=== PATIENT | male | born 1940 | race Caucasian/White ===

== ENCOUNTER 2016-11-20 03:36 | Inpatient (IN) ==
[2016-11-20] MEDS ORDERED: DOPAMINE 400 MG/D5W 400 MG/500 ML IV.SOLN IV SCH (03:40)
[2016-11-20] MEDS ORDERED: DOPAMINE 800 MG/D5W 800 MG/500 ML IV.SOLN ONE (03:45)
[2016-11-20 03:55] LABS: MANUAL DIFF NEEDED? NO
[2016-11-20] MEDS: DOPAMINE 800 MG/D5W 800 MG/500 ML IV.SOLN IV SCH ×2 (04:00→06:10)
[2016-11-20 04:07] LABS: BASO% 0.4 % (0.0-0.8); EOS# 0.12 X1000 (0.0-0.7); EOS% 1.5 % (0.0-10.0); HEMATOCRIT 29.3 % (42.0-52.0); IMM GRAN# 0.18 X1000 (0.0-0.04); IMM GRAN% 2.2 % (0.0-0.5); LYMPH# 0.88 X1000 (1.2-3.4); LYMPH% 10.9 % (20.5-51.1); MCH 29.8 PG (27-31); MCHC 30.7 g/dL (33-37); MONO# 1.42 X1000 (0.11-0.59); MONO% 17.5 % (1.7-9.3); MPV 11.6 FL (7.4-10.4); NEUT% 67.5 % (42.2-75.2); PLT 163 X1000 (130-400); RBC 3.02 XMIL (4.7-6.1)
--- NOTE | 2016-11-20 04:15 | PROVIDER DOCUMENTATION ---
HPI-Cardiopulmonary Arrest - General Chief Complaint: Full Arrest Stated Complaint: full arrest Time Seen by Provider: 11/20/16 04:06 Source: EMS Unable to obtain history due to:: urgency Allergies/Adverse Reactions: Allergies Allergy/AdvReac Type Severity Reaction Status Date / Time Unable to Assess Allergy Unverified 11/20/16 05:05 - History of Present Illness-C/P Arrest Initial Comments: Patient with a history of BABS, COPD, Morbid obesity, HTN, DM, CHF. Collapsed on the floor at home face first, and became unresponsive. EMS on arrival initiated CPR and intubated on the scene. According to EMS, patient went asystolic and had episodes of PEA. Reason for Code Blue?: full arrest Witnessed arrest?: Yes Noted by:: family CPR initiated before doctor arrival?: Yes Down-time before ACLS?: unknown Initial Findings: unresponsive, asystole, PEA Torres, no respirations, no pulse Treatment initiated prior to doctor arrival?: Initiated oxygen, Initiated intubated, Initiated CPR/thumper, Initiated IV fluids, Initiated epinephrine #mg Similar Symptoms Previously?: No Recently seen or treated by another doctor?: No - Pre-hospital Treatment EMS Initial Findings:: unresponsive, no respirations, dyspneic Pre-hospital Treatment: Initiated oxygen, Initiated BVM, Initiated intubated, Initiated CPR, Initiated IV fluids Review of Systems - Adult - REVIEW OF SYSTEMS - ADULT ROS:: unobtainable per condition Constitutional: reports: no symptoms reported Eyes: reports: no symptoms reported Ears, Nose, Mouth & Throat: reports: no symptoms reported Cardiovascular: reports: see HPI Respiratory: reports: dyspnea on exertion Gastrointestinal: reports: no symptoms reported Genitourinary: reports: no symptoms reported Musculoskeletal: reports: no symptoms reported Integumentary: reports: no symptoms reported Neurological: reports: no symptoms reported Psychiatric: reports: no symptoms reported Endocrine: reports: no symptoms reported Hematologic/Lymphatic: reports: no symptoms reported Allergic/Immunologic: reports: no symptoms reported Past History - Adult - PAST MEDICAL HISTORY-ADULT Review of Records: reports: Old Records Reviewed, Nursing Assessment Review, Medications Reviewed, Social history reviewed & non-contributory. Cardiovascular: reports: CHF, HTN Physical Exam-General - PHYSICAL EXAM-ADULT Initial Vital Signs Reviewed: Yes - CONSTITUTIONAL General Appearance: severe distress, obese, obtunded - EYES Eyes: pale conjunctivae - HEAD, EARS, NOSE, MOUTH & THROAT HENMT: TMs normal (blood coming from left nare) - RESPIRATORY Respiratory: decreased breath sounds, decreased rate - CARDIOVASCULAR Cardiovascular: irregularly irregular - GASTROINTESTINAL (ABDOMEN) Abdominal Exam: normal bowel sounds - LYMPHATIC Lymphatic: no adenopathy - MUSCULOSKELETAL Back Exam: normal inspection Extremity: normal range of motion, erythema, pedal edema (chronic venous stasis dermatitis), swelling - SKIN Integumentary: cyanosis, rash, swelling Progress - PLAN OF CARE/RESULTS Progress/Plan/Lab Results: Vital Signs - 8 hr 11/20/16 03:40 11/20/16 04:01 Temperature 96.9 F L Pulse Rate 57 L 85 Respiratory Rate 14 16 Blood Pressure 54/37 84/35 O2 Sat by Pulse Oximetry 99 100 Laboratory Results - last 24 hr 11/20/16 11/20/16 11/20/16 03:40 03:40 03:40 WBC 8.11 RBC 3.02 L Hgb 9.0 L Hct 29.3 L MCV 97.0 MCH 29.8 MCHC 30.7 L RDW Std Deviation 17.8 H Plt Count 163 MPV 11.6 H Immature Gran % (Auto) 2.2 H Neut % (Auto) 67.5 Lymph % (Auto) 10.9 L Terry % (Auto) 17.5 H Eos % (Auto) 1.5 Baso % (Auto) 0.4 Immature Gran # (Auto) 0.18 H Neut # (Auto) 5.48 Lymph # (Auto) 0.88 L Terry # (Auto) 1.42 H Eos # (Auto) 0.12 Baso # (Auto) 0.03 PT INR PTT (Actin FS) Sodium 140 Potassium 5.7 H Chloride 96 L Carbon Dioxide 25 Anion Gap 19 BUN 39 H Creatinine 1.7 H Estimated GFR/1.73 m2 39 BUN/Creatinine Ratio 23 Glucose 212 H Calculated Osmolality 295 Calcium 8.9 Magnesium 2.3 Total Bilirubin 0.88 AST 23 ALT 16 Alkaline Phosphatase 108 Creatine Kinase 53 Mto-V-Bcieavnhjcs Pept 2336 H Total Protein 6.0 L Albumin 3.3 L Globulin 2.7 Albumin/Globulin Ratio 1.2 11/20/16 03:40 WBC RBC Hgb Hct MCV MCH MCHC RDW Std Deviation Plt Count MPV Immature Gran % (Auto) Neut % (Auto) Lymph % (Auto) Terry % (Auto) Eos % (Auto) Baso % (Auto) Immature Gran # (Auto) Neut # (Auto) Lymph # (Auto) Terry # (Auto) Eos # (Auto) Baso # (Auto) PT 22.4 H INR 2.04 PTT (Actin FS) 59.8 H Sodium Potassium Chloride Carbon Dioxide Anion Gap BUN Creatinine Estimated GFR/1.73 m2 BUN/Creatinine Ratio Glucose Calculated Osmolality Calcium Magnesium Total Bilirubin AST ALT Alkaline Phosphatase Creatine Kinase Jen-D-Ccwkxfblhdq Pept Total Protein Albumin Globulin Albumin/Globulin Ratio Orders Category Date Time Status Cardiac Monitoring DIRECTED Care 11/20/16 03:43 Active DNR [Resuscitation Status] Routine Care 11/20/16 04:48 Ordered Oxygen Therapy- ED Nursing DIRECTED Care 11/20/16 03:43 Active Saline Loc NOW Care 11/20/16 03:43 Active CHEST-PORTABLE [RAD] Stat Exams 11/20/16 03:43 Taken CHEST/ABD TUBE PLACEMENT [RAD] Routine Exams 11/20/16 Taken HEAD W/O CONTRAST [CT] Stat Exams 11/20/16 04:22 Taken ABG [RESP] Routine Lab 11/20/16 05:11 Ordered CBC WITH ELECTRONIC DIFF [HEME] Stat Lab 11/20/16 03:40 Completed CK PROFILE [SP CHEM] Stat Lab 11/20/16 03:40 Completed COMPREHENSIVE METABOLIC PANEL [CHEM] Stat Lab 11/20/16 03:40 Completed D-DIMER [CHEM] Stat Lab 11/20/16 03:47 Ordered MAGNESIUM [CHEM] Stat Lab 11/20/16 03:40 Completed PRO B-NATRIURETIC PEPTIDE Stat Lab 11/20/16 03:40 Completed PROTIME WITH INR [COAG] Stat Lab 11/20/16 03:40 Completed PTT [COAG] Stat Lab 11/20/16 03:40 Completed TROPONIN T Stat Lab 11/20/16 03:40 Received 0.9% Sodium Chloride Inj [Ns] Med 11/20/16 05:00 Discontinued 1,000 ml IV .STK-MED ONE Dopamine 400 mg/D5w Med 11/20/16 03:40 Active 400 mg in 500 ml IV Per Protocol Dopamine 800 mg/D5w Med 11/20/16 03:45 Discontinued 800 mg in 500 ml .ROUTE As Directed Epinephrine Syringe Med 11/20/16 05:00 Discontinued 1 mg IV .STK-MED ONE Sodium Bicarbonate 8.4% Med 11/20/16 05:00 Discontinued 50 meq IV .STK-MED ONE EKG [EKG] Stat Ther 11/20/16 03:40 Ordered EKG [EKG] Stat Ther 11/20/16 03:43 Ordered Result Diagrams: 11/20/16 03:40 11/20/16 03:40 - REASSESSMENT Reassessment #1 Status: worsening (Family does not wish any heroic measures, as per patient's request) - EKG 1 Time of EKG reading by physician:: 04:35 EKG Read and Signed by:: Kishor Gandhi EKG Interpretation (*Must complete 3 of following elements*): Abnormal [place]: normal QRS: normal Comments: afib rate 67, non specific sttwave changes - XRAY 1 XRAY Study: Chest (cardiomegaly and pulmonary edema) Departure - Departure Date of Disposition Decision: 11/20/16 Time of Disposition Decision: 05:20 DIAGNOSIS: Cardiopulmonary arrest with successful resuscitation Disposition: ADMITTED INPATIENT 09 Certified Medical Emergency: Emergent Condition: Serious Referrals and Follow-Ups: None,PCP [Clinical Support] - - Critical Care Note This patient required my direct & personal management of CC.: No Attestation - Physician/ E[place] Attestation The physician spent face to face time with patient:: Yes Advanced Practice Provider documentation review:: The physician spent face to face time with this patient and agrees with all MLP documentation, treatment, and medical decision making by the MLP. See provider notes for further information.
[2016-11-20 04:23] LABS: INR 2.04
[2016-11-20 04:36] LABS: ALBUMIN 3.3 g/dL (3.5-5.0); CALCIUM 8.9 mg/dL (8.8-10.2); MAGNESIUM 2.3 mg/dL (1.5-2.7); POTASSIUM 5.7 mmol/L (3.5-5.1); TOTAL BILIRUBIN 0.88 mg/dL (0.20-1.00)
[2016-11-20 04:51] LABS: PROTIME 22.4 Seconds (9.2-11.7); PTT 59.8 Seconds (22.0-36.0)
[2016-11-20] MEDS ORDERED: SODIUM BICARBONATE 8.4% IV ONE (05:00)
[2016-11-20] MEDS ORDERED: NS IV ONE (05:00)
[2016-11-20] MEDS ORDERED: EPINEPHRINE SYRINGE IV ONE (05:00)
[2016-11-20 05:19] LABS: ALLEN TEST YES; BE 4.8 mmoll (-3.0-3.0); BLOOD TYPE ARTERIAL; DRAW SITE R RADIAL; METHB 0.8 % (0.0-1.5); O2(CT) 12.1 mL/dL (15.0-23.0); PO2(98.6) 70 mmHg (60-100); SAMPLE BLOOD; SAO2 97.2 % (95.0-100.0); SRATE 16 BPM; THB 9.2 g/dL (11.5-17.4); TVOL 650 mL; pH(98.6) 7.26 (7.35-7.45)
[2016-11-20 05:20] LABS: MODALITY VENTILATOR
[2016-11-20 05:21] LABS: PCO2(98.6) 74 mmHg (35-45)
--- NOTE | 2016-11-20 05:25 | EKG Report ---
Test Performed on : 11/20/2016 03:37:33 AM Test Reason : post arrest Blood Pressure : / mmHG Vent. Rate : 067 BPM Atrial Rate : 019 BPM P-R Int : 000 ms QRS Dur : 096 ms QT Int : 422 ms P-R-T Axes : 000 -33 039 degrees QTc Int : 445 ms Atrial fibrillation. Left axis deviation Nonspecific ST and T wave abnormality Abnormal ECG No previous ECGs available Unconfirmed Result
[2016-11-20 05:39] LABS: URINE CULTURE NEEDED? NO; URINE SOURCE CATH
[2016-11-20 05:45] LABS: URINE MICRO REVIEW NEEDED? YES
[2016-11-20 05:50] LABS: UR EPITHELIAL CELLS >10 /HPF (<10); URINE BACTERIA NEGATIVE /HPF; URINE RBC <10 /HPF (<10); URINE WBC <10 /HPF (<10)
[2016-11-20 05:54] LABS: URINE SMALL ROUND CELLS NONE SEEN
[2016-11-20 06:03] LABS: UR AMPHETAMINES QUAL NONE DETECTED (NONE DETECT); UR BARBITUATES QUAL NONE DETECTED (NONE DETECT); UR BENZODIAZEPIN QUAL NONE DETECTED (NONE DETECT); UR CANNABINOIDS QUAL NONE DETECTED (NONE DETECT); UR COCAINE QUAL NONE DETECTED (NONE DETECT); UR METHADONE QUAL NONE DETECTED (NONE DETECT); UR OPIATES QUAL NONE DETECTED (NONE DETECT); UR OXYCODONE QUAL NONE DETECTED (NONE DETECT); UR PCP QUAL NONE DETECTED (NONE DETECT)
[2016-11-20 06:12] LABS: BILIRUBIN URINE NEGATIVE (NEGATIVE); BLOOD URINE SMALL (NEGATIVE); COLOR YELLOW; GLUCOSE URINE NEGATIVE (NEGATIVE); LEUKOCYTES URINE NEGATIVE (NEGATIVE); NITRITE URINE NEGATIVE (NEGATIVE); PROTEIN URINE 300 mg/dL (NEGATIVE); SP GRAVITY URINE 1.025; TURBIDITY URINE CLEAR (CLEAR); UROBILINOGEN URINE 2 mg/dL (NORMAL)
--- NOTE | 2016-11-20 07:11 | Diag Imaging Result Doc PS360 ---
EXAM: CHEST-PORTABLE HISTORY: CP TECHNIQUE: AP portable at 0355 COMMENT: There is an endotracheal tube with its tip slightly below the thoracic inlet and an NG tube which passes below the diaphragm. There is alveolar opacity in the perihilar regions. The right costophrenic angle region is not included on the image. There are no previous studies. IMPRESSION: Pulmonary edema plus minus pneumonia. Electronically signed by Donovan Owens 11/20/2016 7:08 AM
[2016-11-20] MEDS ORDERED: TYLENOL PR PRN (07:20)
[2016-11-20] MEDS ORDERED: ATIVAN IV PRN (07:20)
[2016-11-20] MEDS ORDERED: ZOFRAN IV PRN (07:20)
[2016-11-20] MEDS ORDERED: PROTONIX IV SCH (07:20)
[2016-11-20] MEDS ORDERED: MORPHINE IV PRN (07:20)
[2016-11-20] MEDS ORDERED: SODIUM CHLORIDE 0.9% INJ SCH (07:20)
[2016-11-20] MEDS ORDERED: LOVENOX SUBQ SCH (08:00)
--- NOTE | 2016-11-20 08:30 | Diag Imaging Result Doc PS360 ---
EXAM: CHEST/ABD TUBE PLACEMENT HISTORY: NG TUBE TECHNIQUE: AP portable at 0410 supine COMMENT: The NG tube tip appears to be in the fundus of the stomach. There is apparently a fairly large amount of retained gastric contents. Gas is demonstrated in the colon. IMPRESSION: NG tube in the stomach. Electronically signed by Donovan Owens 11/20/2016 8:27 AM
--- NOTE | 2016-11-20 08:33 | Diag Imaging Result Doc PS360 ---
EXAM: HEAD W/O CONTRAST INDICATION: cardiac arrest COMPARISON: None. FINDINGS: There are couple small brayan holes in the skull on the right. Underlying the most posterior brayan hole, there is a small tract of encephalomalacia in the right parietal lobe. There is no evidence of acute infarct given the limited sensitivity of CT versus MRI. There is increased extra-axial space anterior to the frontal lobes bilaterally. This very likely represents frontal lobe atrophy. I suppose chronic subdural hematomas or hygromas are possible. However, feel that this is much less likely. There is no discrete intracranial mass, mass effect, or acute intracranial hemorrhage. The patient has been intubated. There is fluid in the nasal cavity and ethmoid sinuses, likely due to the intubation. There is evidence of a small scalp hematoma at the forehead at and just to the left of midline. Correlate clinically with a history of recent trauma. There is no evidence of acute skull fracture. IMPRESSION: 1.Increased extra-axial space anterior to the frontal lobes as described. Please see above discussion. 2.Findings suggestive of a small scalp hematoma at the forehead. Please correlate with history of recent trauma. 3.Other chronic appearing findings detailed above but no definite acute pathology. If there is clinical concern for acute ischemia, MRI would be helpful if not contraindicated. Electronically signed by Noah Meza 11/20/2016 8:30 AM
--- NOTE | 2016-11-20 09:02 | HISTORY AND PHYSICAL ---
PRIMARY CARE PROVIDER: Dr. Bety Del Angel. DATE AND TIME OF HISTORY AND PHYSICAL: November 20, 2016 at 0530. CHIEF COMPLAINT: Cardiac arrest. HISTORY OF PRESENT ILLNESS: Mr. Astudillo is a 76-year-old male who has , according to his daughter and son, a past medical history of congestive heart failure, hypertension, diabetes mellitus, sleep apnea, and peripheral vascular disease. Early this morning the patient's caregiver reported that he heard the patient call out, yelling for help, though by the time his caregiver got to his room the patient was unresponsive, face down on the floor. CPR was started on scene by his caregiver. Upon EMS arrival they reported that the patient was asystole. CPR was resumed with STANLEY device by EMS. The patient was also intubated by EMS prior to arrival with a 7.5 ET tube that was secured at 22 at the lip. Also prior to arrival the patient did have a right lower extremity IO placed as well. He received a total of 3 separate doses of 1 mg of epinephrine IV push as well as a total of 2 doses of sodium bicarbonate. Initial vitals upon arrival to the ER were heart rate 57, there was a palpable pulse present. Blood pressure was 54/37. He was placed on a dopamine drip. At this time his blood pressure and heart rate have both improved with last vital signs of heart rate 109, respirations 18 per mechanical ventilator, blood pressure is 138/76, oxygen saturation is 97%. EKG did show atrial fibrillation at a rate of 67 with a QTc of 445. His daughter and son both report that over the past few days that he has complained of shortness of breath, though no known other complaints. Unfortunately we do not have any recent past medical history in our system for this patient. His is out of town at this time in [place] and is on her way home. After discussing with the patient's daughter and son at bedside, as well as they have spoken to their mother, the patient's , it is their wishes at this time to continue with his ventilatory support as well as blood pressure and heart rate support with dopamine, though they do not want any further measures taken. They have placed him as a level 1 DNR at this time. At this time they want him to have supportive care. His is on her way and once she gets here the patient's son and daughter did mention that she might make the decision to withdraw care from the ventilator and supportive cardiac medications. At this time the patient's cause of cardiac arrest is unknown. We will continue his ventilatory support as well as dopamine per patient's family wishes. He will be placed in the ICU for further treatment and evaluation. REVIEW OF SYSTEMS: At this time we are unable to obtain a complete review of systems due to the patient being unresponsive. PAST MEDICAL HISTORY: We were unable to obtain a complete past medical history due to the patient's current condition, though his daughter and son at bedside did provide the following known past medical history. 1. Hypertension. 2. Diabetes mellitus. 3. Congestive heart failure. 4. Atrial fibrillation. 5. COPD. 6. Obstructive sleep apnea. 7. Morbid obesity. 8. Previous history of intracranial bleed after a fall. PAST SURGICAL HISTORY: 1. Craniotomy for treatment of a intracranial bleed after a fall. The family did report that since this injury the patient has been taken off of any anticoagulants. 2. Bilateral total knee replacements. 3. Right hip replacement. SOCIAL HISTORY: The patient's family denies any known history of alcohol or illicit drug use. His son did report that he has a previous history of smoking for approximately 20 years ago though quit 40 years ago. PAST FAMILY MEDICAL HISTORY: Patient's family reports that the patient's mother lived to be 102 and of natural causes. His father had a history of having a hole in his heart which could have possibly be an atrial septal defect, though this exact diagnosis is unknown. He does have 1 sister who is still living and has no known medical problems. ALLERGIES: At this time the patient's medication allergies are unknown. HOME MEDICATIONS: At this time we are unable to obtain the patient's home medications due to the patient's condition. Once his arrives we will try to obtain a more accurate medication list or contact the patient's pharmacy to obtain this as well. DIAGNOSTIC DATA/LABORATORY RESULTS: White blood cell count 8.1, hemoglobin 9, hematocrit 29.3, platelet count 163,000. PT 22.4, INR 2.04, PTT 59.8. Sodium 140, potassium 5.7 , chloride 96, bicarb 25, BUN 39, creatinine 1.7, with a GFR of 39, glucose 212, calcium 8.9, magnesium 2.3. Liver function tests are within normal limits. CK 53. Troponin less than 0.01. ProBNP 2,336. Urinalysis was obtained via cath and was positive for protein, small blood, greater than 10 epithelial cells. It was negative for glucose, ketones, nitrites, leukocytes, or bacteria. Urine drug screen was negative. Arterial blood gases were obtained on the ventilator , pH was 7.26, pCO2 was 74, PO2 78, CO3 was 28.6, with a base excess of 4.8, O2 saturation was 97.2. EKG showed atrial fibrillation with a nonspecific ST and T-wave abnormality at a rate of 67 with a QTc of 445. Chest x-ray did show findings of cardiomegaly and pulmonary edema as well, though we are awaiting the official radiology over-read. Head CT without contrast showed there was loss of the normal hou white matter differentiation. This may simply be secondary to technique, although early brain edema is not entirely excluded. Continued follow up was suggested. Increased extra-axial space anterior to the bilateral frontal lobes. This likely relates to atrophy, although chronic subdural hematomas or hygromas are not excluded. Recommended comparison with prior imaging if possible. Right frontal and right parietal brayan holes, small. Encephalomalacia within the right parietal lobe. This was per radiology. Pending diagnostic studies at this time are a D-dimer. PHYSICAL EXAMINATION: VITAL SIGNS: Temperature 96.9 degrees, heart rate is 109, respirations 18, blood pressure is 138/76. Oxygen saturation is 97% per mechanical ventilator. GENERAL: Mr. Astudillo is a 76-year-old male who was resting in the ER stretcher. The patient was unresponsive upon our examination. Due to this, his neurological and physical examination was somewhat limited. HEENT: The patient does have an approximately 1 inch, very superficial laceration/abrasion noted to his forehead. There was some dried blood noted. He also has a superficial laceration noted to his nose as well. This has previously been Dermabonded by the ER physician, Dr. Gandhi, though there is still some dry blood noted also. Pupils are 4 mm bilaterally, are equal, round, and nonreactive. The patient did have some scleral edema noted to his right eye as well. Oral mucosa is slightly dry. NECK: Supple. Trachea midline. CARDIOVASCULAR: Patient has normal S1, S2. No murmurs, gallops, or rubs appreciated, with a tachycardic rate that is irregular. PULMONARY: Patient has symmetrical chest expansion bilaterally. Lung sounds were clear to auscultation bilateral full mckeon. At this time he is maintaining oxygen saturation of 97% on mechanical ventilator. ABDOMEN: Soft. It is hard to determine whether or not the patient's abdomen is distended due to he does have a protuberant abdomen noted. Bowel sounds were present in all 4 quadrants and were normoactive. No facial grimacing or guarding noted upon palpation of his abdomen. GENITOURINARY: Patient does have a Calero catheter present at this time. EXTREMITIES: The patient does have edema noted to bilateral lower extremities from approximately the knee down. He also has some discoloration noted to his bilateral lower extremities consistent with some peripheral vascular disease. Pulses were difficult to palpate due to his swelling, though were easily obtainable with venous Doppler on the bilateral dorsalis pedis. Capillary refill is less than 3. INTEGUMENTARY: Patient's skin is warm, dry, and intact except for previously mentioned injuries to the patient's forehead and nose. NEUROLOGICAL: Patient currently has a GCS of 3. Pupils were 4 mm bilaterally, equal, round, and nonreactive. He had no response to painful stimulation either. Due to this his neurological exam is very limited. ASSESSMENT AND PLAN: 1. Status post cardiac arrest. At this time, as previously mentioned, the patient has been successfully resuscitated. He was initially hypotensive and bradycardic. For treatment of this he was placed on a dopamine drip and his blood pressure as well as heart rate have improved. Heart rate is 109, in atrial fibrillation, and blood pressure is 137/63. His cardiacs at this time are negative. We are waiting a D-dimer to be drawn. At this time the cause of his cardiac arrest is unknown. We will continue with his current treatment. Family has expressed that they do want him to be a level 1 DNR from here on out. They did not want us to withdrawal any care at this time until the patient's arrives, though they do not want us to provide any further care if his condition was to worsen. At this time we will leave the patient on the ventilator as well as his dopamine infusion until his can arrive and family can make further decisions about his care. He will be placed in the ICU for close monitoring. The patient is critical and his condition is very guarded. 2. Hypotension. As previously mentioned, we will continue his dopamine infusion and continue to follow. 3. Bradycardia. Will continue with his dopamine infusion as previously mentioned and continue to follow. 4. Acute respiratory failure. Respiratory support is being provided per mechanical ventilator. Initial ABGs did show a pH of 7.26 as well as a pCO2 of 74. We have adjusted his ventilatory rate and will continue to follow. We have also consulted pulmonology for ventilator management as well. 5. Acute kidney injury. This is likely secondary to the patient's cardiac arrest and hypotension. The patient did receive a 1 L normal saline bolus prior to arrival and in the ER. The patient does have a history of congestive heart failure and does have some signs of pulmonary edema on his chest x-ray. At this time we will not continue with any further fluids, though we will continue to monitor his renal function closely. 6. Diabetes mellitus. We will also monitor his fingerstick blood sugars closely as well and will implement a low-dose lispro sliding scale insulin if needed. 7. The patient was placed in ICU with telemetry. He will have vital signs per ICU protocol. Will do strict intake and output. For DVT prophylaxis we will provide Lovenox 30 mg subcutaneously q.24 hours. He will be NPO. We will do GI prophylaxis with Protonix 40 mg IV q.24 hours. We will also give Ativan and morphine p.r.n. as needed for agitation or sedation. We will wait until the patient's arrives for further wishes from the family for continued care. Further orders and recommendations pending hospital course, diagnostic studies, and physician evaluation. Critical Care Time with this patient was 1 hour. Dictated by CHRISTOPH Saeed for Estefanía Mon MD Seen and examined pt with DELIVERY CREW MEMBER. Our goal for now is pretty much a holding position till the patient's arrives. Plan above discussed with DELIVERY CREW MEMBER. Prognosis is very grave. Patient has features of anoxic brain damage. cc: Estefanía Mon MD [facility]
[2016-11-20 11:22] VITALS: BP 146/91
--- NOTE | 2016-11-20 11:33 | CONSULTATION ---
DATE OF CONSULTATION: 11/20/2016 REQUESTING PHYSICIAN: Joseph Iqbal MD REASON FOR CONSULTATION: Status post cardiopulmonary arrest. HISTORY OF PRESENT ILLNESS: Mr. Astudillo is a 76-year-old, white male, without recent admission to this hospital. The patient's family reports he was admitted to [place] approximately 1 year ago. Patient fell in July 2015 with changes in mental status over time. The patient was diagnosed with a subdural hematoma and underwent craniotomy. The patient did recover but not back to his baseline. He was able to perform his activities of daily living, and drive. Around 2015, he has developed a progressive downhill course. He has had by description repeated admissions to the hospital with hypercapnic respiratory failure. He has had 5 admissions to the hospital since . The patient has a sitter present when family is not available. He broke with his routine last evening of going to bed at 10:00 and would not go to bed until 11:30, by his 's report. Early in the morning, he called out to the sitter and when the sitter came in the room the patient and was found unresponsive face down on the floor. He did not have evidence of respiratory effort and CPR was initiated. By report, he was in asystole when the EMS arrived. The code sheets are not available for review but the son reports it takes him 20 minutes to get to his father's house and CPR was still in progress at that time. The patient was brought to the emergency room. He had a heart rate of 57 with a blood pressure of 54/37. His hemodynamics have improved. PAST MEDICAL HISTORY/PROBLEM LIST: 1. Morbid obesity with a BMI of 55. 2. Chronic hypoxemic and hypercapnic ventilatory failure. The patient is on 5 L oxygen per nasal cannula and on nocturnal BiPAP. 3. Diabetes mellitus. 4. Obstructive sleep apnea. 5. Congestive heart failure. 6. Atrial fibrillation. 7. COPD, by report. The patient had a 10 pack year history of tobacco. 8. History of hip replacement. 9. History of 3 knee replacements. 10. 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 SOCIAL HISTORY: Remote tobacco use. No current alcohol use listed. FAMILY HISTORY: Noncontributory to current presentation. PHYSICAL EXAMINATION: General: Reveals a morbidly obese, white male. He is intubated. His medications have been reviewed and he has received no sedating medications. He is completely unresponsive to pain and verbal stimulation. When the ventilator is discontinued, he had 1 agonal breath before oxygen desaturation occurred. Vital Signs: Blood pressure 146/91, heart rate 112, respiratory rate 18, oxygen saturation 100%. HEENT: Pupils are midpoint and nonreactive. There is mild asymmetry of the pupils with the left being smaller than the right. Neck: Thick without obvious masses. Chest: Reveals good air entry bilaterally. Cardiac: Distant heart sounds with a regular rhythm. Abdomen: Obese and soft. Extremities: Reveal trace to 1+ pitting edema. He has skin changes consistent with chronic venous insufficiency. Neurologic: Patient is nonresponsive. Agonal respirations as outlined above. LABORATORY DATA: CT scan of the brain reveals encephalomalacia in the right parietal lobe. Apparent bilateral frontal lobe atrophy. Scalp hematoma. Arterial blood gas, pH 7.26, pCO2 of 74, PO2 of 70. White blood count 8.11, hemoglobin 9.0, platelet count 163,000. Electrolytes: Sodium 140, potassium 5.7, chloride 96, bicarbonate 25, BUN 39, creatinine 1.7. IMPRESSION: A 76-year-old white male, with evidence of progressive clinical decline over the last 5 months with multiple hospital admissions who has sustained a cardiopulmonary arrest. Time of CPR is not entirely clear because I do not have the ambulance record for review. However, the patient's son reports it takes him at least 20 minutes to reach his father and CPR continued after his arrival indicating the time was at least 20 minutes and probably significantly longer. The patient has evidence of significant neurologic injury. He has not received a sedative. His pupils are unreactive. He has minimal respiratory effort despite being acidotic. His prognosis for full recovery is approximately 0. I have discussed the case with the family. We can follow the patient over the next 24-48 hours to see if he has clinical improvement but it is unlikely he will return to his baseline. With his evidence of clinical decline even with miraculous cure it is likely he would be readmitted to the hospital and his 6 month prognosis is extremely poor. It is their belief that he would not like to be on mechanical ventilation and his previous wishes were not to be placed on life support. Family is currently considering withdrawal of support. RECOMMENDATIONS: 1. Continue current level of support. 2. Consider withdrawal of support to allow a natural . cc: Tang Marx MD
--- NOTE | 2016-11-21 22:29 | DISCHARGE SUMMARY ---
ADMISSION DATE: 11/20/2016 DISCHARGE DATE: 11/20/2016 DATE OF : 11/20/2016 TIME OF : 10:48 in the morning. DIAGNOSES AT THE TIME OF : 1. Cardiac arrest with initial rhythm asystole. 2. Intracranial hypertension. 3. Acute respiratory failure. 4. Acute kidney injury. 5. Hypotension with bradycardia. 6. History of subdural hematoma status post craniotomy. PRESENTING COMPLAINT: Cardiac arrest. HISTORY OF PRESENTING COMPLAINT: Mr. Astudillo is a 76-year-old male who has an extensive medical history including congestive heart failure, hypertension, diabetes, sleep apnea, peripheral vascular disease. The patient has had surgery recently in [place] for subdural hematoma. According to the story the supervisor powdered sugar heard him fall at home. He went to check on him. At that time he went the patient was not breathing, called 911, took them a few minutes to go there. Upon presentation patient was in asystole. Chest compression was in place. Patient was transferred here, was subsequently intubated. A CT scan which was done on presentation did show increased extra axial space anterior of the frontal lobe. The patient was subsequently admitted to the ICU for further medical care. during the short hospital stay patient did not actually show any sign of vitality. The family eventually made him DNR, DNI. All the family members came. There was a constant communication with the family. Eventually the family decided to extubate the patient since patient has a living will which says no intubation and no chest compression. Shortly after extubation patient ceased all signs of vitality at 10:48. An pattern perforating machine operator strip was obtained at 10:48 which showed an asystolic rhythm. Patient was pronounced by 2 of the ICU nurses and the family members were notified. cc: Joseph Iqbal MD
== END 2016-11-20 10:48 | disposition expired ==
LOC: ED 03:36 → SUATTDRO 06:42 → ICU 06:42
PROVIDERS: ATTEND Internal Medicine